=== PATIENT | male | born 1970 | race American Indian/Alaskan Native ===

== ENCOUNTER 2017-04-15 07:08 | Day surgery (SDC) | payer MEDICAID ==
--- NOTE | 2017-04-15 08:19 | Anesthesia Day of Surgery ---
Anesthesia Day of Surgery - Day of Surgery Patient Examined: Yes Patient H&P Reviewed: Yes Patient is NPO: Yes Beta Blockers: Yes
--- NOTE | 2017-04-15 08:22 | Anesthesia Consultation ---
Anesthesia Consult and Med Hx Date of service: 04/15/17 - Airway Anesthetic Teeth Evaluation: Good ROM Head & Neck: Adequate Mental/Hyoid Distance: Adequate Mallampati Class: Class II Intubation Access Assessment: Probably Good - Pulmonary Exam CTA: Yes - Cardiac Exam Cardiac Exam: RRR - Pre-Operative Health Status ASA Pre-Surgery Classification: ASA4 Proposed Anesthetic Plan: MAC - Pulmonary Hx Smoking: No COPD: Yes (does not take meds for) Hx Sleep Apnea: Yes (uses CPAP) - Cardiovascular System Hx Hypertension: No Hx Cardia Arrhythmia: Yes (Cardiomyopathy) Hx Pacemaker: Yes Hx Internal Defibrillator: Yes - Gastrointestinal Hx Gastroesophageal Reflux Disease: Yes - Endocrine Hx Non-Insulin Dependent Diabetes: Yes (takes herbal he got in [place].. stopped insulin. States BG runs around 80) - Hematic Hx Anemia: Yes - Other Systems Hx Obesity: Yes
[2017-04-15] MEDS ORDERED: AMIDATE IV ONE (11:47)
[2017-04-15] MEDS ORDERED: DIPRIVAN 10 MG/ML IV ONE (11:47)
[2017-04-15] MEDS ORDERED: NACL 0.9% 1000 ML 1,000 ML ONE (12:29)
[2017-04-15 12:36] VITALS: BP 122/83
[2017-04-15] MEDS ORDERED: NACL 0.9% 1000 ML 1,000 ML IV SCH (13:00)
--- NOTE | 2017-04-15 15:07 | Post Anesthesia Evaluation ---
- Post Anesthesia Evaluation Patient Participated: Yes Airway Patent: Yes Stable Respiratory Function: Yes Nausea/Vomiting: No Temp > 96.8F: Yes Pain Manageable: Yes Adequeate Hydration: Yes Anesthesia Complications: No
--- NOTE | 2017-04-15 21:54 | Operative Report ---
ENDOSCOPY REPORT PREOPERATIVE DIAGNOSES: 1. Epigastric pain. 2. Gastroesophageal reflux disease. 3. The patient is status post gastric bypass in the past by Noel. 4. Possible enterogastric reflux. POSTOPERATIVE DIAGNOSES: 1. Failed gastrointestinal anastomosis with anastomosis about 50 mm in diameter with obvious enterogastric reflux seen actively upon examination with the scope. 2. A pouch size of 70 mL with dilatation of the pouch. 3. Enterogastric reflux. PROCEDURE: Esophagogastroenteroscopy. DESCRIPTION OF PROCEDURE: The patient was placed on the operating table in the dorsal supine position and following satisfactory induction of MAC anesthesia, the patient was then placed in the left lateral decubitus position and after adequate timeout, the endoscope was passed down the patient's posterior oropharynx and into the esophagus and then into the gastric pouch. The pouch was noted to be quite large and as mentioned above was approximately 70 mL in volume. The anastomosis was also noted to be quite large and was it approximately 50 mm in diameter. The patient had active reflux from the small bowel back into the gastric pouch, which would account for the patient's symptoms of gastroesophageal reflux disease. The patient had a failed gastrointestinal anastomosis that allowed small bowel contents to come freely back into the gastric pouch area to the gastric pouch with small bowel contents. There were no ulcers identified. There was a mild amount of esophagitis seen. With this diagnosis, the procedure was terminated. The scope was then removed. The patient tolerated the procedure well and was subsequently sent to recovery room in satisfactory condition. JOB# [id number] KAELYN/LENKA
== END 2017-04-15 07:09 | disposition home or self-care (01) ==
LOC: GIO 07:08
PROVIDERS: ATTEND Specialist
DX: K91.89 Other postprocedural complications and disorders of digestive system (principal); K21.9 Gastro-esophageal reflux disease without esophagitis; I50.9 Heart failure, unspecified; I25.10 Atherosclerotic heart disease of native coronary artery without angina pectoris; G43.909 Migraine, unspecified, not intractable, without status migrainosus; E11.9 Type 2 diabetes mellitus without complications; J44.9 Chronic obstructive pulmonary disease, unspecified; D64.9 Anemia, unspecified; I42.9 Cardiomyopathy, unspecified; G47.33 Obstructive sleep apnea (adult) (pediatric); M10.9 Gout, unspecified; E66.01 Morbid (severe) obesity due to excess calories; Z68.41 Body mass index [BMI] 40.0-44.9, adult; Z79.899 Other long term (current) drug therapy; Z88.8 Allergy status to other drugs, medicaments and biological substances; Z95.810 Presence of automatic (implantable) cardiac defibrillator; Y83.8 Other surgical procedures as the cause of abnormal reaction of the patient, or of later complication, without mention of misadventure at the time of the procedure
CPT/HCPCS: 43235; 82962; J2704; J7030

== ENCOUNTER 2019-01-14 07:01 | Day surgery (SDC) | payer MEDICAID ==
[~2019-01-14 07:01] MED LIST: NACL 0.9% 1000 ML 1,000 ML IV SCH
[2019-01-14] MEDS ORDERED: WATER FOR IRRIG STERILE ONE (07:21)
[2019-01-14] MEDS ORDERED: WATER FOR IRRIG STERILE IR ONE ×2 (07:21→08:57)
[2019-01-14] MEDS ORDERED: DIPRIVAN 10 MG/ML IV ONE ×2 (08:09→08:55)
[2019-01-14] MEDS ORDERED: XYLOCAINE 2% INFILTRATI ONE (08:09)
[2019-01-14] MEDS ORDERED: VERSED ONE (08:55)
--- NOTE | 2019-01-14 09:31 | Post Operative Note ---
Date of procedure: 01/14/19 Pre-op diagnosis: screening, abdominal pain, h/o gastric by pass Post-op diagnosis: same Findings: Colonoscopy: extent to IC valve (unable to reach cecum despite positional change and abdominal pressure); unremarkable otherwise EGD: esophagitis; post gastric bypass anatomy which appeared normal Procedure: EGD Colonoscopy Anesthesia: MAC Surgeon: ISSAC LIEBERMAN Estimated blood loss: none Pathology: none Condition: stable Disposition: same day
--- NOTE | 2019-01-14 09:36 | Operative Report ---
Operative Report Operative Report: Esophagogastroduodenoscopy Procedure Note Date of procedure: 01/14/2019 Endoscopist: Trev Mckeon Pre-op diagnosis: Abdominal pain, pre-op evaluation Post-op diagnosis: Normal gastric bypass anatomy, esophagitis Anesthesia: MAC Complications: No immediate complications Estimated blood loss: None Procedure: After consent was obtained, the patient was placed in the left lateral decubitus position. The olympus endoscope was inserted into the patient's mouth under direct vision, and advanced to the afferent and efferent jejunal limbs. The patient tolerated the procedure well. The views of the mucosa were good. Patient's vital signs were monitored continuously throughout the procedure. Findings: There was mild esophagitis in the lower third of the esophagus. Otherwise, the esophagus appeared normal. The gastric pouch was medium to large sized and appeared normal. The efferent and afferent limb appeared normal. Impression: 1. Mild esophagitis, otherwise normal post gastric bypass anatomy Recommendations: -follow up with bariatric surgeon -anti-acid medication daily
--- NOTE | 2019-01-14 09:39 | Operative Report ---
Operative Report Operative Report: Colonoscopy Procedure Note Date of procedure: 01/14/2019 Endoscopist: Trev Mckeon Pre-op diagnosis: Screening for colon cancer Post-op diagnosis: Incomplete colonoscopy to IC valve; otherwise no significant findings, fair prep Anesthesia: MAC Complications: No immediate complications Estimated blood loss: minimal Procedure: After consent was obtained, the patient was placed in the left lateral decubitus position. The olympus colonoscope was inserted into the patient's rectum under direct vision, and advanced to the IC valve. The cecum was unable to be reached despite positional change and abdominal pressure. The patient tolerated the procedure well. The views of the mucosa were fair. The quality of prep was fair The patient's vital signs were monitored continuously throughout the procedure. Findings: There were a few scattered diverticula in the colon, otherwise normal colon to IC valve (extent of procedure). Quality of prep was fair (unable to rule out small lesions but no obvious significant lesions were identified). Impression: 1. Diverticulosis 2. Otherwise, unremarkable colonoscopy to IC valve. 3. Fair prep Recommendations: 1. Barium enema to rule out proximal colon lesion (can arrange as outpatient) 2. Repeat colonoscopy in 3 years due to fair prep and incomplete exam 3. High fiber diet daily 4. Return to GI clinic as scheduled
[2019-01-14 10:10] VITALS: BP 135/89
--- NOTE | 2019-01-14 10:23 | Anesthesia Day of Surgery ---
Anesthesia Day of Surgery - Day of Surgery Patient Examined: Yes Patient H&P Reviewed: Yes Patient is NPO: Yes Beta Blockers: No
--- NOTE | 2019-01-14 10:23 | Anesthesia Consultation ---
Anesthesia Consult and Med Hx Date of service: 01/14/19 - Airway Anesthetic Teeth Evaluation: Good ROM Head & Neck: Adequate Mental/Hyoid Distance: Adequate Mallampati Class: Class IV Intubation Access Assessment: Possibly Difficult - Pulmonary Exam CTA: Yes - Cardiac Exam Cardiac Exam: No Murmur - Pre-Operative Health Status ASA Pre-Surgery Classification: ASA4 Proposed Anesthetic Plan: MAC - Pulmonary Hx Smoking: No COPD: Yes (does not take meds for) Hx Sleep Apnea: Yes - Cardiovascular System Hx Hypertension: No Hx Heart Attack/AMI: Yes Hx Cardia Arrhythmia: Yes (Cardiomyopathy) Hx Pacemaker: Yes Hx Internal Defibrillator: Yes - Gastrointestinal Hx Gastroesophageal Reflux Disease: Yes - Endocrine Hx Non-Insulin Dependent Diabetes: Yes (takes herbal he got in [place].. stopped insulin. States BG runs around 80) - Hematic Hx Anemia: Yes - Other Systems Hx Obesity: Yes
== END 2019-01-14 07:02 | disposition home or self-care (01) ==
LOC: GIO 07:01
PROVIDERS: ATTEND Internal Medicine Gastroenterology
DX: K57.30 Diverticulosis of large intestine without perforation or abscess without bleeding (principal); K21.0 Gastro-esophageal reflux disease with esophagitis; I42.9 Cardiomyopathy, unspecified; R19.7 Diarrhea, unspecified; I11.0 Hypertensive heart disease with heart failure; I50.9 Heart failure, unspecified; J44.9 Chronic obstructive pulmonary disease, unspecified; G47.30 Sleep apnea, unspecified; E78.00 Pure hypercholesterolemia, unspecified; E66.9 Obesity, unspecified; M19.90 Unspecified osteoarthritis, unspecified site; E11.9 Type 2 diabetes mellitus without complications; Z98.890 Other specified postprocedural states; Z95.0 Presence of cardiac pacemaker; Z98.84 Bariatric surgery status; Z79.899 Other long term (current) drug therapy; Z79.84 Long term (current) use of oral hypoglycemic drugs; Z90.49 Acquired absence of other specified parts of digestive tract; Z68.42 Body mass index [BMI] 45.0-49.9, adult; Z86.2 Personal history of diseases of the blood and blood-forming organs and certain disorders involving the immune mechanism; Z88.8 Allergy status to other drugs, medicaments and biological substances
CPT/HCPCS: 43235; 45378; 82962; J2250; J2704; J7030

== ENCOUNTER 2019-02-15 13:59 | Outpatient (CLI) | payer OTHER ==
[2019-02-15] MEDS ORDERED: PROVENTIL IH ONE (14:48)
== END 2019-02-15 14:00 | disposition home or self-care (01) ==
LOC: PF 13:59
PROVIDERS: ATTEND Internal Medicine
DX: D86.9 Sarcoidosis, unspecified (principal); I11.0 Hypertensive heart disease with heart failure; I50.9 Heart failure, unspecified; J44.9 Chronic obstructive pulmonary disease, unspecified; K21.9 Gastro-esophageal reflux disease without esophagitis; E66.9 Obesity, unspecified; E11.9 Type 2 diabetes mellitus without complications
CPT/HCPCS: 94060; 94644; 94729